=== PATIENT | female | born 1980 | race American Indian/Alaskan Native ===

== ENCOUNTER 2019-06-09 15:21 | Observation (INO) | payer OTHER ==
[2019-06-09] MEDS ORDERED: NALOXONE 0.4 MG/1 ML INJ IV PRN (15:24)
[2019-06-09] MEDS ORDERED: HYDROcodone/ACETAMINOPHEN 5-325 MG TAB PO PRN (15:24)
[2019-06-09] MEDS ORDERED: ONDANSETRON 4 MG/2 ML INJ IV PRN (15:24)
--- NOTE | 2019-06-09 15:31 | History and Physical Report ---
History of Present Illness Date of examination: 06/09/19 Date of admission: 06/09/19 15:21 Chief complaint: vaginal bleeding History of present illness: Pt is a 39 year old -[place] female who presents with only spotting for the past 6 months, then heavy vaginal bleeding since yesterday, running down her legs and consuming a 36 pack of tampons since yesterday. She reports dyspnea that began before she started bleeding. She has a known history of uterine fibroids. Past History Past Medical History: other (breast cyst, diverticulosis, ) Past Surgical History: other (abdominoplasty, liposuction ) DIRECTOR WEB History: fibroids, herpes (pt may not be aware ) Family/Genetic History: other (Crohn's Disease ) Social history: - Obstetrical History Para: 3 Hx # Term Pregnancies: 3 Number of Pregnancies: 0 Spontaneous Abortions: 0 Induced : 0 Number of Living Children: 3 Medications and Allergies Allergies Allergy/AdvReac Type Severity Reaction Status Date / Time No Known Allergies Allergy Unverified 07/15/15 17:47 Active Meds: Active Medications Acetaminophen/Hydrocodone Bitart ([place] 5/325) 2 each PO Q6H PRN PRN Reason: Pain, Moderate (4-6) Naloxone HCl (Naloxone) 0.1 mg IV Q2MIN PRN PRN Reason: Res Rate </= 8 or 02 SAT < 92% Review of Systems All systems: negative - Physical Exam Abdomen: Positive: soft (obese) Vagina: Positive: other (moderate amount of blood noted in vaginal vault ) Extremities: Positive: edema (trace) Results All other labs normal. Assessment and Plan A: Dysfunctional Uterine Bleeding Fibroid Uterus P: Admit for observation CBC, Type and Screen, Coags, HCG quant Pelvic ultrasound IV Premarin to decrease bleeding Closely monitor clinical status
[2019-06-09] MEDS ORDERED: ESTROGENS, CONJUGATED 25 MG INJ IV SCH (18:00)
--- NOTE | 2019-06-10 08:54 | Progress Note ---
Assessment and Plan A: Dysfunctional Uterine Bleeding Fibroid Uterus P: CBC, Type and Screen, Coags, HCG quant Pelvic ultrasound Closely monitor clinical status IR consult for UFE Subjective - Subjective Date of service: 06/10/19 Principal diagnosis: DUB, Fibroid Uterus Interval history: Pt now has childcare and was able to present this morning. Bleeding has decreased somewhat. Patient reports: appetite normal, voiding normally, ambulating normally Objective - Exam Abdomen: Present: soft
--- NOTE | 2019-06-10 09:38 | Consultation ---
History of Present Illness - Reason for Consult Consult date: 06/10/19 Dysfunctional uterine bleeding - History of Present Illness Patient with a history of uterine fibroids. Per patient, over the last 6 to 12 months she has not experience regular menstrual cycles only intermittent spotting. Over the last 24 hours, the patient has experienced significant uterine bleeding. Since presentation, the patient's bleeding has decreased somewhat. Past History Past Medical History: other (Uterine fibroids) Social history: Medications and Allergies Allergies Allergy/AdvReac Type Severity Reaction Status Date / Time No Known Allergies Allergy Unverified 07/15/15 17:47 Active Meds: Active Medications Acetaminophen/Hydrocodone Bitart ([place] 5/325) 2 each PO Q6H PRN PRN Reason: Pain, Moderate (4-6) Dextrose/Lactated Ringer's (D5lr) 1,000 mls @ 125 mls/hr IV DIRECT JOCELYNE Naloxone HCl (Naloxone) 0.1 mg IV Q2MIN PRN PRN Reason: Res Rate </= 8 or 02 SAT < 92% Ondansetron HCl (Zofran) 4 mg IV Q8H PRN PRN Reason: Nausea And Vomiting Review of Systems All systems: negative Exam - Constitutional General appearance: Present: no acute distress - EENT Eyes: Present: EOM intact ENT: hearing intact - Neck Neck: Present: supple, normal ROM - Respiratory Respiratory effort: normal - Extremities Extremities: no ischemia - Abdominal General gastrointestinal: Present: deferred - Rectal Rectal Exam: deferred - Integumentary Integumentary: Present: clear - Psychiatric Psychiatric: cooperative Assessment and Plan Patient with known history of uterine fibroids. Patient admits to taking copious amounts of aspirin secondary to crampy abdominal pain. Her uterine bleeding has decreased somewhat since admission. We will await labs. The patient will need a CTA of the abdomen and pelvis and both arterial and venous phase. Based on the results of her labs and CTA, the patient may need uterine fibroid embolization with Gelfoam.
[2019-06-10] MEDS ORDERED: D5W/LACTATED RINGERS 1,000 ML IV SCH (10:00)
[2019-06-10 10:22] LABS: Basophils % (Auto) 0.8 % (0.0-1.8); Eosinophils # (Auto) 0.1 K/mm3 (0.0-0.4); Eosinophils % (Auto) 2.4 % (0.0-4.3); Hematocrit 34.3 % (30.3-42.9); Hemoglobin 11.3 gm/dl (10.1-14.3); Lymphocytes # (Auto) 1.7 K/mm3 (1.2-5.4); Lymphocytes % (Auto) 32.5 % (13.4-35.0); Mean Corpuscular HGB Conc 33 % (30-34); Mean Corpuscular Volume 82 fl (79-97); Monocytes # (Auto) 0.5 K/mm3 (0.0-0.8); Monocytes % (Auto) 9.2 % (0.0-7.3); Platelet Count 234 K/mm3 (140-440); Red Blood Count 4.21 M/mm3 (3.65-5.03); Red Cell Distribution Width 12.5 % (13.2-15.2)
[2019-06-10 10:34] LABS: INR 1.09 (0.87-1.13)
[2019-06-10 10:36] LABS: Partial Thromboplastin Time 32.6 Sec. (24.2-36.6)
[2019-06-10 11:06] LABS: Alanine Aminotransferase 12 units/L (7-56); Albumin 4.1 g/dL (3.9-5); BUN/Creatinine Ratio 20; Blood Urea Nitrogen 12 mg/dL (7-17); Calcium 9.1 mg/dL (8.4-10.2); Hemolysis Index 5
--- NOTE | 2019-06-10 12:07 | Event Note ---
Date: 06/10/19 Patient with self-reported decrease in bleeding since her presentation. Her hemoglobin is within normal range. CT of the abdomen pelvis in arterial and venous phases was reviewed and demonstrates no active source of bleeding. I discussed the patient's care with her cut off saw set up operator. At this point in time, she will try hormonal therapy as well as avoidance of aspirin or any other anticoagulant. We will be available if needed however to perform uterine artery embolization.
--- NOTE | 2019-06-10 12:51 | Event Note ---
Date: 06/10/19 Pt s/p IR consultation. During interview, pt reveals new history that she has been taking large amounts of aspirin prior to her bleeding episode. She also reports that her bleeding is decreasing without intervention. Plan to hold UFE at that time and administer a dose of Premarin to decrease uterine bleeding. Continue to monitor closely.
--- NOTE | 2019-06-10 13:19 | Cat Scan Report ---
CLINICAL DATA: disfunctional uterine bleeding TECHNICAL DATA: Following dynamic intravenous nonionic contrast infusion, multiple axial helical overlapped CT with multiplanar reconstructions were obtained. All CT data was transferred to a 3D workstation for multi planar reformation and 3D reconstruction under concurrent physician supervision. All CT scans at this location are performed using CT dose reduction for ALARA by means of automated exposure control. FINDINGS: CTA ABDOMEN PELVIS: The celiac axis is normal. The origin of the superior mesenteric artery is normal. There are single b ilateral renal arteries, which are normal. The infrarenal abdominal aorta demonstrates atheroscleroti c plaques. No evidence of stenosis or abdominal aortic aneurysm. The bifurcation into the common iliac is well delineated with atherosclerotic plaques present without evidence of narrowing. The bifurcation into the internal and external iliac arteries demonstrate pat ency without evidence of a hemodynamically significant lesion. Extensive hypervascularity involving the uterus-uterine fibroids without active extravasation CT ABDOMEN PELVIS: Noncontrast imaging of the upper abdomen fails to demonstrate abnormal calcifications, cholelithiasis , or nephrolithiasis. No focal parenchymal abnormalities are identified. The gallbladder, pancreas, adrenal glands, and ki dneys are within normal limits. There is no evidence of biliary ductal dilatation. The portal and h epatic veins are patent. No definite intraabdominal or retroperitoneal lymphadenopathy is identified . The bowel gas pattern is nonspecific and nonobstructive. There is no evidence of free intraperito fuad air or free intraperitoneal fluid. CT through the pelvis reveals the bladder to be well distended and smooth in contour. There is no ev idence of free air or free fluid within the pelvis. Multiple uterine fibroids are present largest on the left which is slightly hypervascular. This measures approximately 4.2 cm in diameter No focal sof t tissue mass lesions or lymphadenopathy identified. IMPRESSION: 1. Normal CTA of the abdomen and pelvis without active extravasation 2. Enlarged uterus with uterine fibroids as noted. Signer Name: Khanh Beasley MD Signed: 06/10/2019 1:15 PM Workstation Name: [id number]
[2019-06-10] MEDS ORDERED: ESTROGENS, CONJUGATED 25 MG INJ IV SCH (13:30)
[2019-06-10] MEDS ORDERED: WATER FOR INJ Sterile (PF) 10 ML ONE (13:47)
--- NOTE | 2019-06-10 19:08 | Discharge Summary ---
Providers - Providers Date of Admission: 06/10/19 07:54 Date of discharge: 06/10/19 Attending physician: DARSHAN SWIFT 06/10/19 08:45 Consult to Interventional Radiology [CONS] Routine Consulting Provider: ALEC YIP Reason For Exam: DUB, Fibroid Uterus ; UFE (pt conserding gel foam) Primary care physician: DARSHAN SWIFT Hospitalization Reason for admission: vaginal bleeding Hospital course: Pt was admitted for further evaluation of dysfunctional uterine bleeding and fibroids. During her evaluation, she reported feeling better and left against medical advice before being reassessed by provider precision aircraft structure assembler. Condition at discharge: Stable Disposition: [id number] LEFT AGAINST MED ADVICE - Discharge Diagnoses (1) DUB (dysfunctional uterine bleeding) Status: Acute (2) Fibroid uterus Status: Acute (3) Obesity Status: Acute Qualifiers: Obesity type: unspecified obesity type Obesity classification: adult class 2 (BMI 35 - 39.9) Plan - Provider Discharge Summary Activity: routine Additional instructions: [] Smoking cessation referral if applicable(refer to patient education folder for contact #) [] Refer to [facility] Booklet Call your doctor immediately for: * Fever > 100.5 * Heavy vaginal bleeding ( >1 pad per hour) * Severe persistent headache * Shortness of breath * Reddened, hot, painful area to leg or breast * Drainage or odor from incision. * Keep incision clean and dry at all times and follow doctor's instructions regarding bathing/showering - Follow up plan Follow up: DARSHAN SWIFT MD [Primary Care Provider] - 7 Days Forms: [facility] Discharge Summary
--- NOTE | 2019-06-10 19:08 | Event Note ---
Date: 06/11/19 Pt informed RN that she is ready to leave now, though she has not been reassessed by MD mental retardation nurse. She has opted to leave against medical advice.
== END 2019-06-10 15:09 | disposition left against medical advice (07) ==
LOC: 3A 15:21 → UNDOADMOB 15:21 → OB 06-10 07:54
PROVIDERS: ADMIT Obstetrics & Gynecology; ATTEND Obstetrics & Gynecology
DX: N93.8 Other specified abnormal uterine and vaginal bleeding (principal); D25.9 Leiomyoma of uterus, unspecified; E66.9 Obesity, unspecified; Z68.37 Body mass index [BMI] 37.0-37.9, adult
CPT/HCPCS: 36415; 74174; 80053; 84702; 85025; 85610; 85730; 86850; 86900; 86901; 96374; G0378; G0379; J1410; J7121; Q9967